=== PATIENT | male | born 1965 | race Caucasian/White ===

== ENCOUNTER → 2023-05-28 07:53 | Outpatient (CLI) | payer OTHER, SELFPAY ==
--- NOTE | 2023-05-28 08:41 | DI.MRI.S_ITS ---
PROCEDURE: MR LUMBAR SPINE WO CON INDICATIONS: Intervertebral disc disorders, lumbar region TECHNIQUE: Noncontrast sagittal T1 spin echo and T2 fast echo, sagittal STIR, and T2 fast spin echo through the lumbar spine. In cases with scoliosis, additional coronal T2 fast spin echo may be performed. COMPARISON: [facility] Outside Film, MR, MR LUMBAR SPINE WITHOUT CONTRAST, 08/13/2019, 16:56. FINDINGS: Image quality: Excellent. Alignment and Curvature: There is normal bony alignment. No scoliosis Bone Marrow: Marrow is of normal overall signal. No acute vertebral body compression fractures. Spinal Cord: Conus medullaris terminates at the L1 level. Visualized cord demonstrates normal signal and size. Paraspinous Soft Tissues: No paravertebral masses. T12-L1: No significant disc bulge. The foramina and central canal are patent. L1-L2: No significant disc bulge. The foramina and central canal are patent. L2-L3: No significant disc bulge. The foramina and central canal are patent. L3-L4: Diffuse disc bulge causes mild bilateral foraminal stenosis. No central canal stenosis. L4-L5: The disc is desiccated consistent with degeneration. Disc space narrowing with a diffuse disc bulge and central protrusion with an annular tear. The facets are hypertrophic. Moderate bilateral foraminal stenosis with subarticular stenosis. Severe central canal stenosis measuring 4.0 mm. L5-S1: Diffuse disc bulge and facet hypertrophy causes mild bilateral foraminal stenosis. No central canal stenosis. IMPRESSION: Degenerative disc disease primarily at L4-5 at which level there is a diffuse disc bulge with a central protrusion and facet hypertrophy which causes moderate foraminal stenosis bilaterally and severe central canal stenosis. Overall there is no significant interval change compared to 08/13/2019. Dictated by: Dong Parr M.D. on 05/28/2023 at 10:47 Approved by: Dong Parr M.D. on 05/28/2023 at 10:59
== END ==
PROVIDERS: Family Provider Family Medicine; Referring Provider Physical Medicine & Rehabilitation Pain Medicine; Visit Provider Physical Medicine & Rehabilitation Pain Medicine
DX: M51.16 Intervertebral disc disorders with radiculopathy, lumbar region (principal); M51.36 Other intervertebral disc degeneration, lumbar region; M48.061 Spinal stenosis, lumbar region without neurogenic claudication
CPT/HCPCS: 72148

== ENCOUNTER → 2023-08-08 09:37 | Outpatient (CLI) | payer OTHER, SELFPAY ==
--- NOTE | 2023-08-08 | DI.RAD.S_ITS ---
PROCEDURE: FL BARIUM SWALLOW W SPEECH INDICATIONS: DYSPHAGIA / CHOKING ATTACKS COMPARISON: None. TECHNIQUE: Examination was conducted in conjunction with speech pathology per standard protocol. In the lateral projection, filming was performed of the patient swallowing. AP projection filming may also be performed with patient swallowing. COMPARISON: FINDINGS: Function: The oral preparatory phase appears normal, with proper containment. The subsequent oral propulsive phase, pharyngeal phase, and esophageal phase of swallowing also appear normal with all proffered substances. No laryngotracheal penetration or aspiration. No pathologic vallecular pooling. Barium tablet passes through the gastroesophageal junction with mild delay. Morphology: No cricopharyngeal bar is identified. No cervical esophageal webs. No Zenker's diverticulum. No strictures. IMPRESSION: No aspiration. Mild delay of passage of the barium tablet through the gastroesophageal junction. Please see separately dictated speech pathologist's report. Dictated by: Dudley Brownlee M.D. on 08/08/2023 at 11:31 Approved by: Dudley Brownlee M.D. on 08/08/2023 at 11:32
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
== END ==
PROVIDERS: Family Provider Family Medicine; PCP Physician Assistant; Referring Provider Physician Assistant; Visit Provider Physician Assistant
DX: R13.10 Dysphagia, unspecified (principal); R09.89 Other specified symptoms and signs involving the circulatory and respiratory systems
CPT/HCPCS: 74230; 92611

== ENCOUNTER 2024-02-07 15:31 | Emergency (ER) | payer OTHER, SELFPAY ==
[2024-02-07] VITALS (9 sets, daily range): BP systolic 118–146; BP diastolic 62–72; PULSE 67–78; RESP 18–22; TEMP 36.9; O2SAT 94–97; BMI 35.7
--- NOTE | 2024-02-07 15:54 | DI.RAD.S_ITS ---
PROCEDURE: XR ANKLE LT MIN 3V INDICATIONS: glf TECHNIQUE: 3 views of the ankle were acquired. COMPARISON: None. FINDINGS: Bones: No fractures or dislocations. Chronic calcifications noted over the medial lateral malleolus. Ankle mortise is normally aligned. No suspicious bony lesions. Soft tissues: No substantial tibiotalar joint effusion. Lateral malleolar soft tissue edema. Achilles tendon appears normal. IMPRESSION: Lateral malleolar soft tissue edema without underlying fracture or dislocation. If there is persistent clinical concern for occult fracture given adequate mechanism of injury, consider repeat imaging in 10-14 days. Immobilization as clinically indicated. Dictated by: Syed Sung M.D. on 02/07/2024 at 16:27 Approved by: Syed Sung M.D. on 02/07/2024 at 16:29
--- NOTE | 2024-02-07 15:54 | DI.RAD.S_ITS ---
PROCEDURE: XR FOOT LT MIN 3V INDICATIONS: glf TECHNIQUE: 3 views of the foot were acquired. COMPARISON: None. FINDINGS: Bones: No acute fractures or dislocations. No suspicious bony lesions. Soft tissues: No tibiotalar joint effusion. Achilles tendon appears normal. IMPRESSION: No acute bony abnormality. If there is persistent clinical concern for occult fracture given adequate mechanism of injury, consider repeat imaging in 10-14 days. Immobilization as clinically indicated. Dictated by: Syed Sung M.D. on 02/07/2024 at 16:29 Approved by: Syed Sung M.D. on 02/07/2024 at 16:30
--- NOTE | 2024-02-07 15:55 | DI.RAD.S_ITS ---
PROCEDURE: XR SHOULDER LT MIN 2V INDICATIONS: glf TECHNIQUE: 2 views of the shoulder were acquired. COMPARISON: None. FINDINGS: Bones: No fractures or dislocations. No suspicious bony lesions. Visualized ribs appear intact. Degenerative changes of the acromioclavicular joint. Coracoclavicular and acromioclavicular intervals are maintained. Soft tissues: No suspicious soft tissue calcifications. IMPRESSION: Left shoulder without acute fracture or dislocation. Left acromioclavicular osteoarthrosis. If there is persistent clinical concern for occult fracture given adequate mechanism of injury, consider repeat imaging in 10-14 days. Immobilization as clinically indicated. Dictated by: Syed Sung M.D. on 02/07/2024 at 16:31 Approved by: Syed Sung M.D. on 02/07/2024 at 16:32
[2024-02-07] MEDS: HYDROCODONE/ACET 5/325 TABLET 2 TAB PO (17:12)
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
[2024-02-07 18:20] LABS: Add Manual Diff / Slide Review NO; Basophils Absolute Auto 100 /uL (0-100); Eosinophils Absolute Auto 100 /uL (0-450); Eosinophils Percent Auto 1.1 % (2-4); Hematocrit 48.9 % (41-53); Hemoglobin 16.9 g/dL (13.5-17.5); Lymphocytes Absolute Auto 1900 /uL (1100-4500); Lymphocytes Percent Auto 14.3 % (25-40); Mean Corpuscular HGB Conc 34.6 % (30-36); Mean Corpuscular Volume 95.4 fL (80-100); Monocytes Absolute Auto 900 /uL (0-900); Monocytes Percent Auto 6.8 % (3-14); Neutrophils Absolute Auto 10200 /uL (1500-7000); Neutrophils Percent Auto 76.8 % (50-75); Platelet Count 198 X10^3/uL (150-400); Red Blood Cell Count 5.12 X10^6/uL (4.5-5.9); Red Cell Distribution Width 13.1 % (11.6-14.8); White Blood Cell Count 13.3 X10^3/uL (4.5-11.0)
[2024-02-07 18:33] LABS: Alanine Aminotransferase 46 IU/L (<50); Albumin 4.3 g/dL (3.5-5.0); Albumin Globulin Ratio 1.5 (1.0-2.8); Alkaline Phosphatase 121 U/L (38-126); Aspartate Aminotransferase 34 IU/L (17-59); BUN Creatinine Ratio 23.8 (6-22); Bilirubin Total 0.9 mg/dL (0.2-1.3); Blood Urea Nitrogen 19 mg/dL (9-20); Carbon Dioxide 25 mmol/L (22-32); Chloride 106 mmol/L (98-107); Estimated Glomerular Filt Rate > 60 mL/min (>60); Globulin 2.9 g/dL (1.7-4.1); Glucose 164 mg/dL (70-100); HEMOLYSIS 22 (0-50); Potassium 4.3 mmol/L (3.4-5.1); Sodium 138 mmol/L (137-145); Total Protein 7.2 g/dL (6.3-8.2)
[2024-02-07 19:59] LABS: PTT Partial Thromboplastin Tim 29 SECONDS (25.1-36.5)
--- NOTE | 2024-02-07 20:28 | ED.FALL ---
HPI - Fall General Chief Complaint: Fall Stated Complaint: twisted left ankle while getting out of truck Time Seen by Provider: 02/07/24 17:22 Source: patient and EMS Mode of arrival: EMS History of Present Illness HPI Narrative: Patient is a 59-year-old male. 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 He states that he had stepped out of a cab with his right foot and was stepping down to the next step with his left foot when he states he lost his balance and fell backwards. He hit his back against an object. Did not hit his head. No loss of consciousness. Twisted his ankle. Is also complaining back pain, chest pain, shoulder pain. He has not on anticoagulation. Patient is unsure if he lost consciousness but he states that it knocked the wind out of him and he had to sit there for several minutes before he could get up. Abdominal tenderness. Related Data Previous Rx's Medication Instructions Recorded hydrocodone 5 mg-acetaminophen 325 1 tab PO Q4-6H PRN pain #14 tabs 02/07/24 mg tablet Allergies Allergy/AdvReac Type Severity Reaction Status Date / Time No Known Drug Allergies Allergy Verified 02/07/24 17:07 Review of Systems Review of Systems ROS Unobtainable: All systems reviewed & are unremarkable except as noted in HPI and below Patient History Social History Smoking Status: Current every day smoker Smoking Status: Current every day smoker alcohol intake frequency: 0-2 drinks per day Substance Use Type: does not use Exam Initial Vital Signs Initial Vital Signs: Vital Signs Temperature 98.4 F 02/07/24 15:36 Pulse Rate 78 02/07/24 15:36 Respiratory Rate 22 02/07/24 15:36 Blood Pressure 145/71 H 02/07/24 15:36 Pulse Oximetry 95 02/07/24 15:36 Oxygen Delivery Method Room Air 02/07/24 15:36 Const General: cooperative, comfortable and No ill appearing HENMT Head: normal to inspection and normocephalic Chest Chest: No crepitus and No tenderness Resp Effort & Inspection: normal respiratory effort Auscultation: clear to auscultation bilaterally Cardio Rate: regular rate Rhythm: regular rhythm GI Inspection: normal to inspection and non-distended Palpation: soft Back/Spine/Pelvis Cervical Spine: No cervical muscular tenderness and No cervical spinal tenderness Thoracic/Lumbar Spine: thoracic spinal tenderness and No lumbar spinal tenderness Skin General: no rashes or lesions noted Neuro General: patient alert, patient awake, patient oriented x3 and moves all extremities Speech: speech normal Sensory Exam: no sensory deficits noted Extrem General: No edema Other: Tenderness to palpation lateral left ankle Scores GCS Gu[place] coma scale eye opening: Spontaneous Gu[place] coma scale verbal response: Orientated Gu[place] coma scale motor response: Obey commands Guinda coma scale total score: 15 Course Orders Ordered: ED Orders 02/07/24 19:40 PTT Partial Thromboplastin Jhony Stat Prothrombin Time INR Stat Discontinued Medications Hydrocodone Bitart/Acetaminophen (Hydrocodone/Acet 5/325 Tablet) 2 tab PO NOW ONE Stop: 02/07/24 17:05 Last Admin: 02/07/24 17:12 Dose: 2 tab Documented By: DEANN Hydrocodone Bitart/Acetaminophen (Hydrocodone/Acet 5/325 Prepack) 1 bottle MISC DIRECTED ONE Stop: 02/07/24 21:09 Last Admin: 02/07/24 21:22 Dose: 1 bottle Documented By: STEVAN Vital Signs Vital signs: Vital Signs - 8 hr 02/07/24 19:30 02/07/24 19:31 02/07/24 19:31 Pulse Rate 69 68 Respiratory Rate Blood Pressure 125/62 Pulse Oximetry 95 95 02/07/24 20:00 02/07/24 20:01 02/07/24 20:01 Pulse Rate 67 69 Respiratory Rate Blood Pressure 118/72 Pulse Oximetry 96 96 02/07/24 20:30 02/07/24 20:30 02/07/24 21:00 Pulse Rate 69 Respiratory Rate Blood Pressure 126/70 129/70 Pulse Oximetry 95 02/07/24 21:00 Pulse Rate 69 Respiratory Rate 18 Blood Pressure Pulse Oximetry 94 MDM - Fall Lab Data Attestation: I reviewed the patient's lab results. 02/07/24 18:15 02/07/24 18:15 Labs: Lab Results 02/07/24 02/07/24 Range/Units 18:15 19:40 WBC 13.3 H (4.5-11.0) X10^3/uL RBC 5.12 (4.5-5.9) X10^6/uL Hgb 16.9 (13.5-17.5) g/dL Hct 48.9 (41-53) % MCV 95.4 (80-100) fL MCH 33.0 (26-34) PG MCHC 34.6 (30-36) % RDW 13.1 (11.6-14.8) % Plt Count 198 (150-400) X10^3/uL Neut % (Auto) 76.8 H (50-75) % Lymph % (Auto) 14.3 L (25-40) % [place] % (Auto) 6.8 (3-14) % Eos % (Auto) 1.1 L (2-4) % Baso % (Auto) 1.0 (0-2) % Neut # (Auto) 02389 H (9520-3062) /uL Lymph # (Auto) 1900 (1266-7440) /uL [place] # (Auto) 900 (0-900) /uL Eos # (Auto) 100 (0-450) /uL Baso # (Auto) 100 (0-100) /uL PT 11.0 (9.4-12.5) SECONDS INR 1.0 (0.9-1.3) APTT 29 (25.1-36.5) SECONDS Sodium 138 (137-145) mmol/L Potassium 4.3 (3.4-5.1) mmol/L Chloride 106 (98-107) mmol/L Carbon Dioxide 25 (22-32) mmol/L BUN 19 (9-20) mg/dL Creatinine 0.80 (0.66-1.25) mg/dL Estimated GFR > 60 (>60) mL/min BUN/Creatinine Ratio 23.8 H (6-22) Glucose 164 H (70-100) mg/dL Calcium 9.0 (8.4-10.2) mg/dL Total Bilirubin 0.9 (0.2-1.3) mg/dL AST 34 (17-59) IU/L ALT 46 (<50) IU/L Alkaline Phosphatase 121 (38-126) U/L Total Protein 7.2 (6.3-8.2) g/dL Albumin 4.3 (3.5-5.0) g/dL Globulin 2.9 (1.7-4.1) g/dL Albumin/Globulin Ratio 1.5 (1.0-2.8) Urine Dip Bedside Urine Glucose 1000 mg/dl Bedside Urine Bilirubin - Negative Bedside Urine Ketone - Negative Urine Specific [place] 1.015 Bedside Urine Occult Blood - Negative Bedside Urine pH 5.5 Bedside Urine Protein - Negative Bedside Urine Urobilinogen - Negative Bedside Urine Nitrite - Negative Bedside Urine Leukocytes - Negative Esterase Imaging Data Extremity x-ray #1: Radiologist's Impression: PROCEDURE: XR ANKLE LT MIN 3V INDICATIONS: glf TECHNIQUE: 3 views of the ankle were acquired. COMPARISON: None. FINDINGS: Bones: No fractures or dislocations. Chronic calcifications noted over the medial lateral malleolus. Ankle mortise is normally aligned. No suspicious bony lesions. Soft tissues: No substantial tibiotalar joint effusion. Lateral malleolar soft tissue edema. Achilles tendon appears normal. IMPRESSION: Lateral malleolar soft tissue edema without underlying fracture or dislocation. If there is persistent clinical concern for occult fracture given adequate mechanism of injury, consider repeat imaging in 10-14 days. Immobilization as clinically indicated. Extremity x-ray #2: Radiologist's Impression: PROCEDURE: XR FOOT LT MIN 3V INDICATIONS: glf TECHNIQUE: 3 views of the foot were acquired. COMPARISON: None. FINDINGS: Bones: No acute fractures or dislocations. No suspicious bony lesions. Soft tissues: No tibiotalar joint effusion. Achilles tendon appears normal. IMPRESSION: No acute bony abnormality. If there is persistent clinical concern for occult fracture given adequate mechanism of injury, consider repeat imaging in 10-14 days. Immobilization as clinically indicated. Extremity x-ray #3: Radiologist's Impression: PROCEDURE: XR SHOULDER LT MIN 2V INDICATIONS: glf TECHNIQUE: 2 views of the shoulder were acquired. COMPARISON: None. FINDINGS: Bones: No fractures or dislocations. No suspicious bony lesions. Visualized ribs appear intact. Degenerative changes of the acromioclavicular joint. Coracoclavicular and acromioclavicular intervals are maintained. Soft tissues: No suspicious soft tissue calcifications. IMPRESSION: Left shoulder without acute fracture or dislocation. Left acromioclavicular osteoarthrosis. If there is persistent clinical concern for occult fracture given adequate mechanism of injury, consider repeat imaging in 10-14 days. Immobilization as clinically indicated. CT - cervical spine: Radiologist's Impression: PROCEDURE: CT CERVICAL SPINE WO CON INDICATIONS: fall out of semi, hit head, mid thoracic back pain TECHNIQUE: Noncontrast 3 mm thick sections acquired from the skull base to the T4 level. Sagittal and coronal reformats were then constructed. For radiation dose reduction, the following was used: automated exposure control, adjustment of mA and/or kV according to patient size. COMPARISON: None. FINDINGS: Image quality: Diagnostic Bones: Mild degenerative changes. No traumatic subluxation or acute vertebral body height loss. Soft tissues: Vascular calcifications are present. No apical pneumothorax. Chest findings are separately dictated no pathologic prevertebral soft tissue swelling. IMPRESSION: No displaced fracture or traumatic subluxation. Mild spondylosis. If there is high concern for further derangement, consider MRI evaluation. CT scan - chest: Radiologist's Impression: ROCEDURE: CT CHEST W CON INDICATIONS: fall out of semi, hit head, mid thoracic back pain TECHNIQUE: After the administration of intravenous contrast, 5 mm thick sections acquired from the pulmonary apices to the posterior costophrenic angles. 1 mm axial lung, 5 mm thick coronal and sagittal reformats and 7 mm axial MIP were acquired. For radiation dose reduction, the following was used: automated exposure control, adjustment of mA and/or kV according to patient size. COMPARISON: None. FINDINGS: Image quality: Diagnostic Lungs and pleura: No pneumothorax or hemothorax. No pulmonary laceration or contusion identified. No suspicious pulmonary nodules. No dense airspace disease or pleural effusions. Mediastinum, heart, and esophagus: No hiatal hernia. Normal heart size. Aortic valve annular smiled calcifications. No pathologic lymph nodes by size criteria. There is no mediastinal hematoma. Chest wall and thyroid: 1.6 cm right thyroid nodule. No chest wall hematoma. Upper abdomen: No gross abnormality on these images of the partially visualized upper abdomen. Incidental 1.8 cm right adrenal nodule is seen. Bones: Degenerative spine changes. Nondisplaced hyperextension injury in the setting of DISH at T7-T8. Left rib fractures are seen, nonacute appearing. IMPRESSION: On a background of thoracic DISH, there is a nondisplaced hyperextension fracture at T7-T8. No acute intrathoracic traumatic abnormality. Incidental right thyroid nodule measuring 1.6 cm, correlate with nonurgent ultrasound. Incidental 1.8 cm right adrenal nodule, probably an adenoma which could be confirmed with adrenal protocol CT or MRI. Consider also biochemical testing to determine functional status. CT scan - head: Radiologist's Impression: PROCEDURE: CT HEAD/BRAIN WO CON INDICATIONS: fall out of semi, hit head, mid thoracic back pain TECHNIQUE: Noncontrast 4.5 mm thick angled axial sections acquired from the foramen magnum to the vertex, with coronal and sagittal reformats. For radiation dose reduction, the following was used: automated exposure control, adjustment of mA and/or kV according to patient size. COMPARISON: None. FINDINGS: Image quality: Diagnostic CSF spaces: Basal cisterns are patent. Lateral ventricles are symmetric. Volume: Vascular calcifications. Periventricular white matter disease is commonly seen with chronic microangiopathy. Volume loss is present. These findings are mild Brain: No acute hemorrhage or gross loss of rolle-white differentiation Craniofacial structures: No significant paranasal sinus opacity. Hypoplastic right mastoid air cells. IMPRESSION: No acute intracranial abnormality MDM Narrative Medical decision making narrative: I did discuss the incidental findings of the thyroid nodule and adrenal nodule with the patient and his . They will follow-up with the primary doctor regarding this. Patient does have finding of a thoracic spinal fracture. He is neurologically intact. I did discuss the case with Dr. Clark on-call for Orthopedic surgery who recommended pain control and ambulation as tolerated. Patient is tender over the areas of potential fractures noted on the CT scan. The rest of his workup is unremarkable. I did discuss the expected course over the next couple days. Will send home with symptom control. Patient was given specific return precautions. He expressed understanding and agreement plan. Discharge Plan Departure Patient Disposition: Home Clinical Impression: Ankle sprain, Fracture of thoracic spine, Right thyroid nodule, Adrenal nodule Instructions: How To Perform RICE (Rest, Ice, Compress, Elevate), How to Apply an Elastic Wrap on Ankle Activity Restrictions/Additional Instructions: Expect to be more sore tomorrow than what you were today. You can take Tylenol/ibuprofen for discomfort. Use the stronger pain medication as needed. Your activity is limited by the discomfort that you are having. Return to the emergency department for new symptoms. Prescriptions: New hydrocodone-acetaminophen 5-325 mg tablet 1 tab PO Q4-6H PRN (Reason: pain) Qty: 14 0RF Referrals: Allyn Arnold PA-C [Primary Care Provider] - Stand Alone Forms: Patient Portal/API, Work Release Note
[2024-02-07] MEDS: HYDROCODONE/ACET 5/325 PREPACK 1 BOTTLE MISC (21:22)
== END 2024-02-07 21:29 | disposition home or self-care (01) ==
PROVIDERS: Emergency Medicine; Emergency Provider Emergency Medicine; Family Provider Family Medicine; PCP Physician Assistant
DX: S22.061A Stable burst fracture of T7-T8 vertebra, initial encounter for closed fracture (principal); S93.401A Sprain of unspecified ligament of right ankle, initial encounter; R10.9 Unspecified abdominal pain; E04.1 Nontoxic single thyroid nodule; S09.90XA Unspecified injury of head, initial encounter; E27.8 Other specified disorders of adrenal gland; W17.89XA Other fall from one level to another, initial encounter
CPT/HCPCS: 70450; 71260; 72125; 73030; 73610; 73630; 80053; 81003; 85025; 85610; 85730; 99284; Q9967

== ENCOUNTER → 2024-04-14 | Outpatient (CLI) | payer BC, SELFPAY ==
--- NOTE | 2024-04-14 10:49 | DI.US.S_ITS ---
PROCEDURE: US THYROID INDICATIONS: THYROID NODULE TECHNIQUE: Real-time scanning was performed of the thyroid gland, with image documentation. COMPARISON: None. FINDINGS: Thyroid: Right lobe measures 6.0 x 2.4 x 2.0 cm. Left lobe measures 4.1 x 2.5 x 2.3 cm. Isthmus is 0.4 cm thick. Echotexture is heterogeneous on the right. Nodule number: 1 Location: Right mid Size: 2.3 cm. Composition: Predominantly solid Echogenicity: Heterogeneous Shape: wider than tall. Margins: Smooth Echogenic foci: Internal punctate echogenic foci Total points: 6 ACR TI-RADS category: Moderately suspicious IMPRESSION: Moderately suspicious 2.3 cm right thyroid nodule. Recommend sonographically directed fine-needle aspiration. ACR TI-RADS definitions and recommendations: TI-RADS 1 (benign): 0 points. FNA not needed. TI-RADS 2 (not suspicious): 2 points. FNA not needed. TI-RADS 3 (mildly suspicious): 3 points. * FNA if 2.5 cm or larger, follow up if 1.5 cm or larger (at 1, 3, and 5 years). TI-RADS 4 (moderately suspicious): 4-6 points. * FNA if 1.5 cm or larger, follow up if 1 cm or larger (at 1, 2, 3, and 5 years). TI-RADS 5 (highly suspicious): 7 points or more. * FNA if 1 cm or larger, follow up if 0.5 cm or larger (every year for 5 years). Dictated by: Vincent Alexander Leanna Interpreted: Arlene Galan MD on 04/15/2024 at 18:37 Transcribed by: JOE on 04/15/2024 at 18:39 Approved by: Arlene Galan M.D. on 04/16/2024 at 16:46
== END ==
LOC: US 10:49
PROVIDERS: Family Provider Family Medicine; PCP Physician Assistant; Referring Provider Physician Assistant; Visit Provider Physician Assistant
DX: E04.1 Nontoxic single thyroid nodule (principal)
CPT/HCPCS: 76536

== ENCOUNTER → 2024-04-25 07:49 | Outpatient (CLI) | payer BC, SELFPAY ==
--- NOTE | 2024-04-25 07:50 | DI.CT.S_ITS ---
PROCEDURE: CT ABDOMEN ADRENAL PROTOCOL INDICATIONS: ADRENAL ADENOMA/NODULE TECHNIQUE: Noncontrast 3 mm thick sections acquired from the diaphragms to the iliac crests. After the administration of intravenous contrast, 3 mm thick venous-phase and 15-minute delayed images acquired from the diaphragms to the iliac crests. For radiation dose reduction, the following was used: automated exposure control, adjustment of mA and/or kV according to patient size. COMPARISON: [facility], CT, CT CHEST [facility], 02/07/2024, 17:33. FINDINGS: Image quality: Excellent. Lower chest: Unremarkable. ABDOMEN: Adrenal Glands: No new or enlarging adrenal nodules with reference to the small right adrenal nodule seen on CT scanning of the chest 02/07/24. The initial precontrast radiodensity of this nodule measures -1.2 Hounsfield units. Post-contrast imaging measures 21 Hounsfield units. Delayed post contrast imaging measures -1.1 Hounsfield unit. This results in a absolute washout percentage of 99.5%, and a relative washout of 105.2%. Each of these is consistent with a benign adrenal adenoma. This structure measures 1.7 cm in maximal AP dimension, long axis. Liver: No solid mass. Gallbladder: No radiopaque gallstones or wall thickening. Biliary ducts: No biliary dilation. Pancreas: No ductal dilation. Spleen: Size is within normal limits. Kidneys and Ureters: No hydronephrosis. No solid mass. No complex renal cystic lesion which requires follow up. Stomach and Bowel: Normal colonic caliber, without significant wall thickening. Peritoneum: No abnormal intraperitoneal fluid. No free air. Ventral Wall: No hernia. Abdominal Nodes: No retroperitoneal or mesenteric adenopathy by size criteria. Vessels: Aorta and inferior vena cava are normal in size. Bones: No aggressive osseous abnormality. IMPRESSION: Small right-sided benign adrenal adenoma based on imaging characteristics, and no follow-up is recommended. Dictated by: Franklin Casillas M.D. on 04/25/2024 at 13:42 Approved by: Franklin Casillas M.D. on 04/25/2024 at 13:51
[2024-04-25 08:23] LABS: Estimated Glomerular Filt Rate > 60 mL/min (>60)
== END ==
PROVIDERS: Radiology Diagnostic Radiology; Family Provider Family Medicine; PCP Physician Assistant; Referring Provider Physician Assistant; Visit Provider Physician Assistant
DX: D35.01 Benign neoplasm of right adrenal gland (principal); E27.8 Other specified disorders of adrenal gland; K25.3 Acute gastric ulcer without hemorrhage or perforation
CPT/HCPCS: 36415; 74170; 82565; Q9967

== ENCOUNTER → 2024-05-16 07:37 | Outpatient (CLI) | payer OTHER, SELFPAY ==
--- NOTE | 2024-05-16 07:37 | DI.CT.S_ITS ---
PROCEDURE: CT LUMBAR SPINE WO CON INDICATIONS: Wedge compression fracture of unspecified thoracic vertebra, TECHNIQUE: Noncontrast 3 mm thick sections acquired from the T12 level to the sacrum. Sagittal and coronal reformats were constructed. For radiation dose reduction, the following was used: automated exposure control. COMPARISON: None. FINDINGS: Image quality: Excellent. Bones: There is normal bony alignment. No acute vertebral body compression fractures. No suspicious lytic or blastic bony lesions. No pars defects. Generalized osteopenia. Bulky anterior osteophyte formation is seen at multiple levels in the lumbar spine without solid bridging. Mild degenerative changes at the sacroiliac joints bilaterally. T12-L1: No significant spinal canal stenosis or neural foraminal narrowing. L1-L2: No significant spinal canal stenosis or neural foraminal narrowing. L2-L3: No significant spinal canal stenosis or neural foraminal narrowing. L3-L4: Mild circumferential disc bulging and mild facet hypertrophy superimposed on congenitally short pedicles result in mild narrowing of the spinal canal and mild bilateral neural foraminal narrowing. L4-L5: Loss of disc space height with moderate circumferential disc bulging as well as mild facet hypertrophy and buckling of the ligamentum flavum superimposed on congenitally short pedicles. Findings result in moderate to severe narrowing of the spinal canal with effacement of the lateral recesses and at least moderate bilateral neural foraminal narrowing. L5-S1: Mild circumferential disc bulging and [id number] bilateral facet hypertrophy superimposed on congenitally short pedicles. Findings result in at least moderate bilateral neural foraminal narrowing without significant narrowing of the bony spinal canal. Soft tissues: No retroperitoneal masses or hematomas. Visualized aorta is normal in caliber. IMPRESSION: 1. At L4-5, degenerative changes superimposed on congenitally shortened pedicles result in moderate to severe narrowing of the spinal canal and at least moderate bilateral neural foraminal narrowing. 2. Additional multilevel degenerative disc disease and facet hypertrophy as described in the body of the report. 3. No acute osseous fracture. Generalized osteopenia. 4. Mild bilateral sacroiliac joint osteoarthrosis. Approved by: Surinder Arzate M.D. on 05/16/2024 at 12:34
--- NOTE | 2024-05-16 07:37 | DI.CT.S_ITS ---
PROCEDURE: CT THORACIC SPINE WO CON INDICATIONS: Wedge compression fracture of unspecified thoracic vertebra, TECHNIQUE: Noncontrast 3 mm thick sections acquired through the region of interest in the thoracic spine. Sagittal and coronal reformats were then constructed. For radiation dose reduction, the following was used: automated exposure control. COMPARISON: [facility], CT, CT CHEST W CON, 02/07/2024, 17:33. [facility], [place], XR THORACIC SPINE 3 VIEWS, 03/11/2024, 8:54. FINDINGS: Image quality: Excellent. Bones: There is normal overall bony alignment. Bridging osteophytes are seen anteriorly from T2 through the thoracolumbar junction, compatible with diffuse idiopathic skeletal hyperostosis (DISH). Fracture through an anterior bridging osteophyte is again seen at the T7-8 disc space level as seen on CT from 02/07/2024. Fracture line extends into the T8 vertebral body with surrounding sclerosis. No loss of vertebral body height. No retropulsion of osseous fragments. Mild periosteal new bone formation is seen anterior to the disc space. No suspicious sclerotic or lytic bony lesions. Central spinal canal is of normal overall caliber. Soft tissues: No paravertebral masses or hematomas. Visualized posteromedial lungs appear clear. IMPRESSION: 1. Nondisplaced fracture of the T8 vertebral body extending through an anterior bridging osteophyte at the T7-8 disc space level. No loss of vertebral body height or retropulsion of osseous fragments. Findings appear similar when compared to the CT from 02/07/2024. 2. No new osseous fracture. 3. Bridging osteophytes throughout the thoracic spine with relatively preserved disc spaces, most compatible with DISH. Approved by: Surinder Arzate M.D. on 05/16/2024 at 12:28
== END ==
LOC: CT 07:37
PROVIDERS: Family Provider Family Medicine; PCP Physician Assistant; Referring Provider Neurological Surgery; Visit Provider Neurological Surgery
DX: S22.061A Stable burst fracture of T7-T8 vertebra, initial encounter for closed fracture (principal); M47.816 Spondylosis without myelopathy or radiculopathy, lumbar region; M47.817 Spondylosis without myelopathy or radiculopathy, lumbosacral region; M47.818 Spondylosis without myelopathy or radiculopathy, sacral and sacrococcygeal region; M48.061 Spinal stenosis, lumbar region without neurogenic claudication; M48.07 Spinal stenosis, lumbosacral region; M51.36 Other intervertebral disc degeneration, lumbar region; M51.37 Other intervertebral disc degeneration, lumbosacral region
CPT/HCPCS: 72128; 72131

== ENCOUNTER → 2025-01-16 09:34 | Outpatient (CLI) | payer OTHER, SELFPAY ==
--- NOTE | 2025-01-16 09:35 | DI.RAD.S_ITS ---
PROCEDURE: XR LUMBAR SPINE MIN 4V INDICATIONS: BACK PAIN TECHNIQUE: 5 views of the lumbar spine were acquired, including bilateral oblique views. COMPARISON: None. FINDINGS: Bones: 5 nonrib-bearing vertebrae are present. There is normal bony alignment. Loss of disc height, degenerative endplate changes and bilateral facet arthrosis throughout lumbar spine is seen. No vertebral body compression fractures. No suspicious bony lesions. Soft tissues: Overlying bowel gas pattern is normal. No suspicious soft tissue calcifications. Oblique images: No pars defects. There is suggestion of bilateral bony foraminal stenosis at L3-4 and L4-5 levels. IMPRESSION: [id number] degenerative disc disease throughout lumbar spine. No acute vertebral body compression fracture or significant spondylolisthesis. No pars defects are seen on oblique views. Suggestion of bilateral bony foraminal stenosis at L3-4 and L4-5 levels. Dictated by: Amador De Jesus M.D. on 01/16/2025 at 10:11 Approved by: Amador De Jesus M.D. on 01/16/2025 at 10:13
== END ==
PROVIDERS: Family Provider Family Medicine; PCP Nurse Practitioner; Referring Provider Physical Medicine & Rehabilitation; Visit Provider Physical Medicine & Rehabilitation
DX: M51.369 Other intervertebral disc degeneration, lumbar region without mention of lumbar back pain or lower extremity pain (principal); M54.9 Dorsalgia, unspecified; M48.062 Spinal stenosis, lumbar region with neurogenic claudication; S22.060S Wedge compression fracture of T7-T8 vertebra, sequela; G89.4 Chronic pain syndrome; E66.01 Morbid (severe) obesity due to excess calories; Z68.37 Body mass index [BMI] 37.0-37.9, adult; Z98.1 Arthrodesis status
CPT/HCPCS: 72110; 99214

== ENCOUNTER → 2025-01-22 10:40 | Outpatient (CLI) | payer OTHER, SELFPAY ==
--- NOTE | 2025-01-22 14:59 | ST.SWALLOW ---
Visit Care Team Role Provider Type KEELY Steve Primary Care Provider Non-Staff Referring Provider Specialty: Nursing Address: [facility] [address], [address], [place], [address] Email: Luis Felipe Schaeffer MD Family Provider Non-Staff Specialty: Medical Address: 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 He was taken to ED where imaging indicated thyroid nodule and adrenal nodule, rib fractures as well as thoracic spinal fractures. He was observed to be neurologically intact. He did report that after his fall, his face was numb for 4-5 hours. Pt's reported PMH includes GERD, current smoker, thyroid nodule Subjective Observations Pt was seated in the flouroscopy chair with directions and procedures explained for him. He indicated he understood and agreed to proceed Patient Positioning Position View Lat-A/P Imaging Lateral View Textures Administered Trials Presented Thin Liquid via Spoon (IDDSI 0 ),Thin Liquid via Cup (IDDSI 0 ),Extremely Thick Liquid via Spoon (IDDSI 4),Regular (IDDSI 7) Barium Tablet Yes The IDDSI Framework Protocol: IDDSI.1 Oral Impairment Source: The Modified Barium Swallow Impairment Profile (MBSImP??) Lip Closure No labial escape Tongue Control During Bolus Hold Cohesive bolus between tongue to palatal seal Bolus Preparation/Mastication Timely & efficient chewing & mashing Bolus Transport/Lingual Motion Brisk tongue motion Oral Residue Complete oral clearance,Trace residue lining oral structures Location Tongue Initiation of Pharyngeal Swallow Bolus head at posterior laryngeal surface of epiglottis Additional Oral Impairment Observations Oral phase of swallow WNL *OME and DKS were observed to be WNL. *Dentition natural and in good hygiene. Some posterior teeth missing. *Mastication observed with rotary chew pattern. *Good bolus formation, control and AP transition. *Velopharyngeal closure was WNL. Pharyngeal Impairment Source: The Modified Barium Swallow Impairment Profile (MBSImP??) Soft Palate Elevation No bolus between soft palate & pharyngeal wall Laryngeal Elevation Part.sup.move.thyroid cart/ part.approx.arytenoids to epiglot.petiole Anterior Hyoid Excursion Partial anterior movement Epiglottic Movement Complete inversion Laryngeal Vestibular Closure Complete; no air/contrast in laryngeal vestibule Pharyngeal Stripping Wave Present - complete Pharyngoesophageal Segment Opening Complete distention & complete duration; no obstruction of flow Tongue Base Retraction Trace column of contrast/air betwn tongue base & post. pharyngeal wall Pharyngeal Residue Trace residue within/on pharyngeal structures Location Valleculae Additional Pharyngeal Impairment Pharyngeal phase of swallow Observations WNL *Adequate hyolaryngeal elevation and movement *Complete epiglottal inversion and good airway seal *UES opening and duration WNL *Minimal pharyngeal pooling *No laryngeal penetration of tracheal aspiration observed A/P View Textures Administered Trials Presented Thin Liquid via Spoon (IDDSI 0 ) The IDDSI Framework Protocol: IDDSI.1 A/P View Observations Pharyngeal Contraction Complete Esophageal Clearance Upright Position Complete clearance; esophageal coating Vocal Fold Function Good Esophageal Function WFL Additional A-P Observations Barium tablet briefly stopped near aortic arch and at LES. tablet cleared to stomach with additional sips of water Clinical Impressions Dysphagia Type WNL Findings Results of MBSS were WNL. The results and recommendations of the MBSS were described to the pt while observing still pictures taken during the MBSS. Pt expressed appreciation and indicated he understood. Patient Appropriate for Therapy No Recommendations Diet Comments No diet changes recommended
== END ==
PROVIDERS: Family Provider Family Medicine; PCP Nurse Practitioner; Referring Provider Nurse Practitioner; Visit Provider Otolaryngology
DX: R13.19 Other dysphagia (principal)
CPT/HCPCS: 74230; 92611